=== PATIENT | male | born 1965 | race Caucasian/White ===

== ENCOUNTER → 2019-10-09 | Emergency (ER) | payer MEDICAID ==
[~2019-10-09] VITALS: Ht 182.9 cm; Wt 56.7 kg
[~2019-10-09] MED LIST: ALBU2.5V38 IH; FOLI0.4T2 PO; FURO-144 PO; IV NS 0.9% 1,000 ML IV ONE; PANT40TA2 PO; POTA20TA83 PO; SPIR25TA6 PO
--- NOTE | 2019-10-09 10:15 | NUR ---
[id number] congregate for low o2 saturation and ams. Patient responds to name, non-verbal at this time, opens eyes to name. Attached to the ekg monitor tech. spo2 92% on room air, applied NC 1lpm. No distress noted. Needs attended.
--- NOTE | 2019-10-09 10:30 | NUR ---
Seen and examined by Dr. Owen. Iv line established, blood drawn and sent to lab.
[2019-10-09 10:32] LABS: BASOPHILS # (AUTO) 0.2 /CMM (0.0-0.2); BASOPHILS % (AUTO) 1.8 % (0.0-2.0); EOSINOPHILS % (AUTO) 0.2 % (0.0-6.0); HEMATOCRIT 45 % (39-51); HEMOGLOBIN 14.6 g/dL (13.5-17.5); LYMPHOCYTES % (AUTO) 18.5 % (20.0-44.0); MEAN CORPUSCULAR HGB CONC 32 g/dl (31.0-36.0); MEAN CORPUSCULAR VOLUME 79 fL (80-96); MONOCYTES # (AUTO) 0.7 /CMM (0.1-1.30); MONOCYTES % (AUTO) 6.9 % (2.0-12.0); NEUTROPHILS # (AUTO) 7.8 /CMM (1.8-8.9); NEUTROPHILS % (AUTO) 72.6 % (43.0-81.0); PLATELET COUNT (AUTO) 428 /CMM (150-450); RED BLOOD CELL COUNT(AUTO) 5.71 MIL/uL (4.5-6.0); WHITE BLOOD COUNT (AUTO) 10.7 K/uL (4.3-11.0)
--- NOTE | 2019-10-09 10:40 | NUR ---
NORMAL SALINE 1 LITER STARTED WITH FLUID WARMER.
--- NOTE | 2019-10-09 10:40 | NUR ---
PATIENT PLACED ON A WARMER DUE TO HYPOTHERMIA.
[2019-10-09 10:50] LABS: CALCIUM, SERUM 10.3 mg/dL (8.5-10.1); CHLORIDE 92 mmol/L (98-107); CREATININE 0.7 mg/dL (0.6-1.3); GLUCOSE 179 mg/dL (74-106); POTASSIUM 4.2 mmol/L (3.5-5.1); SODIUM SERUM 134 mmol/L (136-145); UREA NITROGEN, BLOOD 13 mg/dL (7-18)
[2019-10-09 11:04] LABS: ALANINE AMINOTRANSFERASE 22 U/L (12-78); ALKALINE PHOSPHATASE 178 U/L (46-116); ASPARTATE AMINOTRANSFERASE 23 U/L (15-37); B-TYPE NATRIURETIC PEPTIDE 304 PG/ML (0-125); BILIRUBIN,TOTAL 0.3 mg/dL (0.2-1.0); TOTAL PROTEIN, SERUM 9.9 g/dL (6.4-8.2)
[2019-10-09 11:10] LABS: CARBON DIOXIDE 44 mmol/L (21-32)
[2019-10-09 11:20] LABS: APPEARANCE,URINE Clear (CLEAR); BILIRUBIN,URINE Negative (NEGATIVE); BLOOD, URINE Large Ery/uL (NEGATIVE); COLOR,URINE Yellow (YELLOW); KETONES,URINE Negative (NEGATIVE); LEUKOCYTE ESTERASE ,URINE Negative (NEGATIVE); NITRITE, URINE Negative (NEGATIVE); PROTEIN,URINE 100 mg/dl (NEGATIVE); UGLUCOSE Negative (NEGATIVE); UROBILINOGEN,URINE 0.2 EU/dL (0.2)
[2019-10-09 11:21] LABS: BACTERIA,URINE Rare /HPF (None Seen); HYALINE CASTS, URINE Few /LPF (None Seen); RBC,URINE 21-50 /HPF (0-2); SQUAMOUS EPITHELIAL CELL,UR Rare /HPF (None Seen)
--- NOTE | 2019-10-09 11:22 | NUR ---
Covid swab sent to lab. Indwelling catheter inserted Fr16 via sterile technique.
--- NOTE | 2019-10-09 11:30 | NUR ---
PATIENT FOUND TO BE UNRESPONSIVE AND PULSELESS. UNABLE TO OBTAIN ANY HEART RHYTHM AND BLOOD PRESSURE READING. DR. SLATER MADE AWARE.
[2019-10-09 11:33] VITALS: BP 0/0
--- NOTE | 2019-10-09 11:33 | NUR ---
DR. SLATER PRONOUNCED TIME OF AT [id number]
--- NOTE | 2019-10-09 11:40 | NUR ---
FOUND PERIPHERAL IV LINE DISLODGED FROM FOREARM.
[2019-10-09 11:41] LABS: CREATINE KINASE, TOTAL 47 U/L (39-308); FERRITIN 167 ng/mL (8-388)
[2019-10-09 11:43] LABS: C-REACTIVE PROTEIN 9.1 mg/dL (0.0-0.9)
--- NOTE | 2019-10-09 11:50 | NUR ---
PAGED DR. STRANGE
--- NOTE | 2019-10-09 12:30 | NUR ---
CALLED [facility]
--- NOTE | 2019-10-09 12:41 | NUR ---
PAGED DR. STRANGE
--- NOTE | 2019-10-09 13:47 | NUR ---
SPOKE TO DR. STRANGE AND ASKED IF HE'S GOING TO SIGN THE CERTICATE, PER MD HE WILL NOT SIGN THE CERTIFICATE, HE STATED "HE ONLY SAW THE PATIENT ONE TIME."
--- NOTE | 2019-10-09 13:56 | NUR ---
CALLED [facility] TO REPORT A , SPOKE TO MARCELINO, .
--- NOTE | 2019-10-09 14:25 | NUR ---
[place] MALKA PERDUE
--- NOTE | 2019-10-10 06:46 | NUR ---
REC'D NEG COVID RESULTS BY KELI FROM LAB. AWARE
== END | disposition expired ==
LOC: ER 10:08
DX: A41.9 Sepsis, unspecified organism (principal); J18.9 Pneumonia, unspecified organism; R09.02 Hypoxemia; R68.0 Hypothermia, not associated with low environmental temperature; Z66 Do not resuscitate; I50.9 Heart failure, unspecified; J44.9 Chronic obstructive pulmonary disease, unspecified; R31.9 Hematuria, unspecified; E87.3 Alkalosis; R73.9 Hyperglycemia, unspecified; R06.82 Tachypnea, not elsewhere classified; Z20.828 Contact with and (suspected) exposure to other viral communicable diseases
CPT/HCPCS: 36415; 36600; 71045; 80053; 81001; 82550; 82728; 82803; 83605; 83615; 83880; 84145; 84484; 85025; 86140; 87040 ×2; 87081; 87086; 93005; 96360; 99291; C9803; J7030; U0003; 81000-TC